=== PATIENT | female | born 1995 | race Caucasian/White ===

== ENCOUNTER 2020-09-10 23:24 | Emergency (ER) | payer OTHER ==
[~2020-09-10 23:24] MED LIST: ATARAX25 MG PO; BACLOFEN 10MG T10 MG PO; BUPROPION XL300 MG PO; ESCITALOPRAM OX20 MG PO; ETODOLAC500 MG PO; MACROBID100 MG PO; NAPROXEN500 MG PO; ONDANSETRON ODT4 MG SL; PANTOPRAZOLE SO40 MG PO; PRAZOSIN HCL5 MG PO; PROTONIX 40MG T40 MG PO; TRI-LO-MARZIA1 EACH PO
[2020-09-11 00:06] LABS: BASOPHIL 0.6 % (0-2); EOSINOPHIL 0.2 % (0-5); HCT 40.3 % (37.0-47.0); HGB 13.5 g/dl (12.5-16.0); LYMPHOCYTE 12.4 % (15-48); MCH 29.1 pg (25.0-31.0); MCHC 33.5 g/dL (32.0-36.0); MCV 86.9 fL (78.0-100.0); MONOCYTE 7.2 % (0-12); MPV 8.8 fL (6.0-9.5); NEUTROPHIL 79.2 % (41-80); NRBC 0; PLT 396 K/uL (150-400); RBC 4.64 M/uL (4.20-5.40); RDW 13.7 % (11.5-14.0); WBC 10.3 K/uL (4.0-10.5)
[2020-09-11 00:27] LABS: BILIRUBIN - TOTAL 0.4 mg/dL (0.2-1.0); BUN/CREAT RATIO (CALC) 10.5 RATIO; CREATININE 0.76 mg/dL (0.51-0.95); GLOBULIN (CALCULATION) 4.6 g/dL; POTASSIUM 3.7 mmol/L (3.5-5.1); TOTAL PROTEIN 7.6 g/dL (6.4-8.2)
[2020-09-11 00:47] LABS: CORONAVIRUS 2019 SARS-COV-2 POSITIVE (NEGATIVE); INFLUENZA A NAA NEGATIVE (NEGATIVE)
[2020-09-11] MEDS ORDERED: MEDROL 4MG DOSEP4 MG PO (01:23)
[2020-09-11] MEDS ORDERED: TESSALON PERLE100 MG PO (01:23)
[2020-09-11] MEDS ORDERED: ZPAK PO (01:23)
== END 2020-09-11 01:44 | disposition home or self-care (01) ==
LOC: FER 23:24
PROVIDERS: Emergency Medicine Emergency Medical Services
DX: U07.1 COVID-19 (principal); F17.290 Nicotine dependence, other tobacco product, uncomplicated; Z88.8 Allergy status to other drugs, medicaments and biological substances
CPT/HCPCS: 36415; 71046; 80053; 83605; 85025; 93005; J2930; J7040; U0002

== ENCOUNTER 2020-11-19 11:56 | Emergency (ER) | payer OTHER ==
[~2020-11-19 11:56] MED LIST changes: +MEDROL 4MG DOSEP4 MG PO; +TESSALON PERLE100 MG PO; +ZPAK PO
[2020-11-19 13:39] LABS: BASOPHIL 0.5 % (0-2); EOSINOPHIL 0.8 % (0-5); HCT 37.9 % (37.0-47.0); HGB 12.5 g/dl (12.5-16.0); LYMPHOCYTE 19.5 % (15-48); MCH 28.3 pg (25.0-31.0); MCV 85.9 fL (78.0-100.0); MONOCYTE 3.9 % (0-12); MPV 9.2 fL (6.0-9.5); NEUTROPHIL 74.9 % (41-80); NRBC 0; PLT 457 K/uL (150-400); RBC 4.41 M/uL (4.20-5.40); RDW 13.6 % (11.5-14.0); WBC 12.9 K/uL (4.0-10.5)
[2020-11-19 13:47] LABS: ALBUMIN 2.9 g/dL (3.4-5.0); BILIRUBIN - TOTAL 0.4 mg/dL (0.2-1.0); BUN/CREAT RATIO (CALC) 15.9 RATIO; CREATININE 0.69 mg/dL (0.51-0.95); POTASSIUM 3.7 mmol/L (3.5-5.1); TOTAL PROTEIN 6.9 g/dL (6.4-8.2)
[2020-11-19 14:55] LABS: AMPHETAMINES NEGATIVE (NEGATIVE); BARBITURATES NEGATIVE (NEGATIVE); ECSTASY (MDMA) NEGATIVE (NEGATIVE); MARIJUANA (THC) NEGATIVE (NEGATIVE); METHADONE NEGATIVE (NEGATIVE); OPIATES NEGATIVE (NEGATIVE); OXYCODONE NEGATIVE (NEGATIVE)
[2020-11-19 15:04] LABS: BILIRUBIN NEGATIVE (NEGATIVE); BLOOD NEGATIVE Ery/uL (NEGATIVE); CLARITY CLEAR (CLEAR); COLOR YELLOW (YELLOW); GLUCOSE (U) NORMAL (NORMAL); LEUKOCYTES NEGATIVE Leu/uL (NEGATIVE); NITRITE NEGATIVE (NEGATIVE); PROTEIN NEGATIVE (NEGATIVE); SPECIFIC GRAVITY 1.025 (1.001-1.030); UROBILINOGEN 0.2 mg/dL (0.2-1.0); pH 6.5 (5.0-9.0)
== END 2020-11-19 16:30 | disposition home or self-care (01) ==
LOC: FER 11:56
PROVIDERS: Nurse Practitioner Family
DX: R07.89 Other chest pain (principal); R00.2 Palpitations; F17.290 Nicotine dependence, other tobacco product, uncomplicated; Z88.1 Allergy status to other antibiotic agents
CPT/HCPCS: 36415; 71046; 80053; 80305; 81003; 85025; 93005; J7030

== ENCOUNTER 2021-10-25 15:50 | Emergency (ER) | payer OTHER | END 2021-10-25 17:51 | disposition home or self-care (01) | LOC: FER 15:50 | DX: K92.0 Hematemesis (principal); F17.290 Nicotine dependence, other tobacco product, uncomplicated; Z88.8 Allergy status to other drugs, medicaments and biological substances | CPT/HCPCS: 99284 ==

== ENCOUNTER 2022-03-20 03:31 | Emergency (ER) | payer OTHER ==
[2022-03-20 04:00] LABS: BASOPHIL 0.7 % (0-2); EOSINOPHIL 2.1 % (0-5); HGB 13.1 g/dl (12.5-16.0); MCHC 32.8 g/dL (32.0-36.0); MCV 82.3 fL (78.0-100.0); MONOCYTE 5.4 % (0-12); MPV 9.1 fL (6.0-9.5); NEUTROPHIL 57.5 % (41-80); NRBC 0; PLT 412 K/uL (150-400); RBC 4.86 M/uL (4.20-5.40); RDW 14.3 % (11.5-14.0); WBC 11.3 K/uL (4.0-10.5)
[2022-03-20 04:20] LABS: ALBUMIN 3.6 g/dL (3.4-5.0); ALKALINE PHOSHATASE 134 U/L (46-116); ALT 26 U/L (14-59); AST 13 U/L (15-37); BILIRUBIN - TOTAL 0.4 mg/dL (0.2-1.0); BUN 11 mg/dL (7-18); BUN/CREAT RATIO (CALC) 17.5 RATIO; CHLORIDE 105 mmol/L (98-107); CO2 (BICARBONATE) 24 mmol/L (21-32); CREATININE 0.63 mg/dL (0.51-0.95); GLOBULIN (CALCULATION) 3.7 g/dL; GLUCOSE 119 mg/dL (74-106); LIPASE 140 U/L (73-393); POTASSIUM 3.6 mmol/L (3.5-5.1); TOTAL PROTEIN 7.3 g/dL (6.4-8.2)
== END 2022-03-20 05:03 | disposition home or self-care (01) ==
LOC: FER 03:31
PROVIDERS: Internal Medicine
DX: K21.9 Gastro-esophageal reflux disease without esophagitis (principal); R07.89 Other chest pain; F17.290 Nicotine dependence, other tobacco product, uncomplicated; Z86.16 Personal history of COVID-19; Z88.1 Allergy status to other antibiotic agents; Z79.899 Other long term (current) drug therapy
CPT/HCPCS: 36415; 71045; 80053; 83690; 84145; 84484; 85025; 85379; 93005; C9113